=== PATIENT | female | born 1990 | race African-American/Black ===

== ENCOUNTER 2017-04-12 19:12 | Emergency (ER) | payer MEDICAID ==
[~2017-04-12] VITALS: Ht 165.1 cm; Wt 105.3 kg
[~2017-04-12 19:12] MED LIST: LORT5TAB PO
[2017-04-12 19:34] VITALS: BP 129/77; PULSE 84; RESP 14; TEMP 98.2; O2SAT 100
--- NOTE | 2017-04-12 20:11 | PD ---
HPI Chief Complaint: Skin Problem Time Seen by Provider: 20:04 Travel History International Travel<30 days: No Contact w/Intl Traveler<30days: No Traveled to known affect area: No History of Present Illness HPI 26-year-old female presents to the emergency department for spreading pruritic rash 2 days. Patient states rash began on the volar aspect of her right forearm ascending the arm and now spreads to the waistline on her torso and behind her knees. No other family members with similar symptoms. No coworkers or similar symptoms. Patient works in a [email or web address] center. Patient denies any handling of new equipment, papers, furniture, pets, plants, foods. Patient does not work out in the yard he is not exposed to plant chemicals or weeds or plants. Patient denies any recent febrile illness or respiratory illness. No fever or chills. No sore throat or cough. Patient denies any chronic medical conditions. Patient denies diabetes. Patient is not . Last period was 18 March and normal for her. Patient states she's used [id number] medications for itching without symptomatic relief. Rash seems to be spreading and worsens with scratching. PFSH Past Medical History Narrative Medical Asthma immunizations current LMP 03/18/17 no surgeries no tobacco use Medical History: Denies Significant Hx Asthma: Yes Diminished Hearing: No Immunizations Current: Yes Tetanus Vaccination: > 5 Years Influenza Vaccination: No ?: Not : 1 Miscarriage: 1 Past Surgical History Surgical History: No Previous Surgery Social History Alcohol Use: No Tobacco Use: No Substance Use: No Allergies-Medications (Allergen,Severity, Reaction): Coded Allergies: No Known Allergies (Unverified , 04/12/17) Reported Meds & Prescriptions Reported Meds & Active Scripts Active Elimite Topical (Permethrin) 5% Cream 1 Applic TOPICAL ONCE Review of Systems Except as stated in HPI: all other systems reviewed are Neg Physical Exam Narrative GENERAL: Well-developed well-nourished female in no acute distress no respiratory distress SKIN: Warm and dry. Papular rash to the volar aspect of the right forearm extending to the antecubital fossa sparing the axilla underneath the breast and at the waistline of the trunk and volar aspect of the left upper arm as well as fossa of the left lower extremity. No vesicles no pustules evidence of excoriation. HEAD: Normocephalic. EYES: No scleral icterus. No injection or drainage. NECK: Supple, trachea midline. No JVD or lymphadenopathy. CARDIOVASCULAR: Regular rate and rhythm without murmurs, gallops, or rubs. RESPIRATORY: Breath sounds equal bilaterally. No accessory muscle use. GASTROINTESTINAL: Abdomen soft, non-tender, nondistended. MUSCULOSKELETAL: No cyanosis, or edema. BACK: Nontender without obvious deformity. No CVA tenderness. Data Data Last Documented VS Vital Signs Date Time Temp Pulse Resp B/P Pulse Ox O2 Delivery O2 Flow Rate FiO2 04/12/17 19:34 98.2 84 14 129/77 100 Orders Ed Urine Pregnancytest Poc (04/12/17 20:04) MDM Medical Decision Making Medical Screen Exam Complete: Yes Emergency Medical Condition: Yes Medical Record Reviewed: Yes Interpretation(s) POC hcg: negative Differential Diagnosis Contact dermatitis, folliculitis, scabiform rash, allergic dermatitis Narrative Course [place] hCG ordered Diagnosis Primary Impression: Allergic contact dermatitis Qualified Code: L23.9 - Allergic contact dermatitis, unspecified trigger Additional Impression: Scabies Referrals: Primary Care Physician Patient Instructions: General Instructions Additional Instructions: Increase fluid hydration Complete course of Elimite Wash all clothes and linens Use Benadryl 25 mg to 50 mg every 4-6 hours as needed for rash and pruritus however do not take this medication if driving or handling heavy equipment may use as alternate Zyrtec 10 mg daily or Claritin 10 mg daily Use [id number] Zantac 150 per package directions for Pepcid OTC 20 mg per package instructions as well for allergic symptoms No work times one day Follow-up with primary care provider Return to the emergency department for any concerns or change in condition May use topical Aveeno anti-itch to areas of pruritus. Med/Other Pt SpecificInfo: Prescription(s) given Scripts Permethrin Topical (Elimite Topical)5% Cream1 Applic TOPICAL ONCE #1 TUBE Ref 0 Prov:Eva Martinez MD 04/12/17 Disposition: 01 DISCHARGE HOME Condition: Stable Eva Martinez MD Apr 12, 2017 20:11
[2017-04-12] MEDS ORDERED: PERM5CRE11 TOPICAL (20:19)
== END 2017-04-12 20:30 | disposition home or self-care (01) ==
LOC: PHEFT 19:12
DX: B86 Scabies (principal); L23.9 Allergic contact dermatitis, unspecified cause; J45.909 Unspecified asthma, uncomplicated
CPT/HCPCS: 84703; 99283